=== PATIENT | female | born 1995 | race Caucasian/White ===

== ENCOUNTER 2016-07-06 14:39 | Emergency (ER) | payer MEDICAID ==
[~2016-07-06 14:39] MED LIST: PREN1CAP7 PO
--- NOTE | 2016-07-06 15:48 | PD ---
HPI Chief Complaint Lower abdominal pain and pressure Date Seen: Jul 06, 2016 Time Seen: 15:35 Travel History International Travel<30 Days: No Contact w/Intl Traveler<30Days: No Known Affected Area: No History of Present Illness HPI 21-year-old 2 para 1 at 27+ weeks gestation with a reported EDC of 525. She states that she was feeling normally well last evening when she was shopping and had some lower abdominal pressure and tenderness. 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 She reports that the pain was constant and focused in the lower abdomen. It did not radiate. She denies any dysuria hematuria or frequency. She had some nausea without vomiting. She denies any diarrhea or significant change in bowel habits. No leakage of fluid, vaginal discharge, bleeding. No history of trauma. She reports some decreased movement today. Para: 1 : 2 Miscarriage: 0 : 0 History Past Medical History Medical History: Denies Significant Hx Obstetric History Obstetric History Prior term vaginal delivery of an 8 lbs. 14 oz. female [facility] has been uncomplicated. Past Surgical History Surgical History: No Previous Surgery Family History Family History: Negative Social History Alcohol Use: No Tobacco Use: Yes (2 cigarettes per day) Substance Abuse: No Allergies-Medications (Allergen,Severity, Reaction): Coded Allergies: Sulfa (Verified Allergy, Intermediate, Swelling, 07/06/16) Home Meds Active Scripts W/O Vit A W/ Fe Fumar (Citranatal Olean)27-1-260 Mg Cap1 Cap PO DAILY #30 CAP Ref 11 Prov:Shawna Eubanks CNM [facility] 04/01/16 Review of Systems Except as stated in HPI: all other systems reviewed are Neg Physical Exam Narrative GENERAL: Well-nourished, well-developed patient. SKIN: Warm and dry. HEAD: Normocephalic and atraumatic. EYES: No scleral icterus. No injection or drainage. ENT: No nasal drainage noted. Mucous membranes pink. Airway patent. NECK: Supple, trachea midline. No JVD. CARDIOVASCULAR: Regular rate and rhythm without murmurs, gallops, or rubs. RESPIRATORY: Breath sounds equal bilaterally. No accessory muscle use. ABDOMEN/GI: Abdomen soft, non-tender, bowel sounds present, no rebound, no guarding Gravid to [-] weeks size Fundal Height: [27-] GENITOURINARY: External Genitalia: intact and normal in appearance BUS glands: [Negative-] Cervix: [-] Dilatation: [Closed] Effacement: [-Long] Station: [-High] Presentation: [-] Membranes: [intact or ruptured] Uterine Contractions: [-] FHT's: Category: [-] Baseline: [-140s] Reactive: [-] Variability: [-avg] Decels: [No-] EXTREMITIES: No cyanosis or edema. BACK: Nontender without obvious deformity. No CVA tenderness. NEUROLOGICAL: Awake and alert. Motor and sensory grossly within normal limits. Five out of 5 muscle strength in all muscle groups. Normal speech. Data Data Vital Signs Reviewed: Yes MDM Narrative Course / MDM Assessment: 27+ week gestation with lower abdominal discomfort and pressure. Plan: Precautions were reviewed for emergent follow-up. She'll continue her routine care with [facility]. Addendum: UA did not meet criteria for culture. Urine drug screen was positive for marijuana. Diagnosis Diagnosis: Primary Impression: 27 weeks gestation of Additional Impression: Abdominal pain during in third trimester Disposition: DISCHARGE HOME Patient Instructions: General Instructions Departure Forms: Tests/Procedures Tree Gramajo MD Jul 06, 2016 15:48
[2016-07-06 16:00] VITALS: BP 106/61; PULSE 81; RESP 18
[2016-07-06 16:14] LABS: BLOOD, URINE NEG (NEG); COMMENT (UR) CULT NOT INDICATED; CULTURE IF INDICATED CULT NOT INDICATED; GLUCOSE,URINE NEG (NEG); KETONE, URINE NEG (NEG); MUCUS URINE MANY /lpf (OCC); NITRITE,URINE NEG (NEG); PH, URINE 6.5 (5.0-8.5); SQUAMOUS EPITHELIAL CELL URINE 6 /hpf (0-5); URINE COLOR YELLOW (YELLW/STRAW)
[2016-07-06 16:20] LABS: AMPHETAMINE, URINE NEG (NEG); BARBITURATES, URINE NEG (NEG); COCAINE, URINE NEG (NEG)
[2016-07-11] MEDS ORDERED: AZIT250T3 PO (13:38)
[2016-07-12] MEDS ORDERED: AZIT250T3 PO (10:01)
[2016-07-12 12:24] LABS: OBMETHADONE UR NEG (NEG); PHENCYCLIDINE URINE NEG (NEG)
[2016-07-12 12:25] LABS: BATH SALTS (MDPV) UR NEG (NEG); ECSTASY (MDMA) UR NEG (NEG); HEROIN (6-ACETYLMORPHINE) UR NEG (NEG); K2 SPICE UR NEG (NEG); OXYCODONE (PERCODAN) NEG (NEG)
== END 2016-07-06 16:44 | disposition home or self-care (01) ==
LOC: HOBED 14:39
DX: O26.892 Other specified pregnancy related conditions, second trimester (principal); R10.9 Unspecified abdominal pain; O99.332 Smoking (tobacco) complicating pregnancy, second trimester; Z3A.27 27 weeks gestation of pregnancy
CPT/HCPCS: 80307; 81001; 99284; G0481

== ENCOUNTER → 2016-07-11 | Outpatient (CLI) | payer MEDICAID ==
[~2016-07-11] MED LIST changes: +AZIT250T3 PO
== END ==
LOC: CLAB 11:33
DX: O36.0130 Maternal care for anti-D [Rh] antibodies, third trimester, not applicable or unspecified (principal)
CPT/HCPCS: 36415; 86850; 86900; 86901; 90384; 96372; J2790